=== PATIENT | male | born 1970 | race Caucasian/White ===

== ENCOUNTER 2016-08-07 23:58 | Observation (INO) | payer OTHER ==
[2016-08-08] MEDS ORDERED: Dexamethasone IV* 4 MG/ML 1 ML (4 MG) IV SLOW PU ONE (00:33)
[2016-08-08] MEDS ORDERED: Ketorolac INJ* 30 MG/ML 1 ML VIAL IV PUSH ONE (00:33)
[2016-08-08] MEDS ORDERED: Morphine INJ* 4 MG/ML 1 ML SYRINGE IV ONE (00:34)
--- NOTE | 2016-08-08 00:40 | ED ---
Back Pain - HPI Summary HPI Summary: The patient is a 46 male presenting to ED with complaint of worsening low back pain since yesterday morning. Reports chronic history of intermittent low back pain secondary to traumatic herniated disc s/p L4-L5 spinal surgery 1991. Has been evaluated by PCP with pending MRI. Admits to radiation of pain right posterior thigh to great toe. Denies recurrent trauma, heavy lifting, fever, chills, chest pain, shortness of breath, abdominal pain, fecal or urinary incontinence, urinary retention, unilateral weakness. Has been taking ibuprofen 800 mg with minimal relief. History of asthma and seasonal allergies. S/P left inguinal herniorrhaphy and septoplasty. PCP Dr. Sadaf Sanchez SH: Former smoker. Occasional marijuana use. No alcohol. - History of Current Complaint Pain Intensity: 7 <Yue Michel - Last Filed: 08/08/16 01:58> <Crispin Dash - Last Filed: 08/08/16 05:02> - History of Current Complaint Chief Complaint: EDBackInjuryPain Stated Complaint: BACK PAIN Time Seen by Provider: 08/08/16 00:09 - Allergies/Home Medications Allergies/Adverse Reactions: Allergies Allergy/AdvReac Type Severity Reaction Status Date / Time Penicillins Allergy Intermediate Hives Verified 08/08/16 01:55 PMH/Surg Hx/FS Hx/Imm Hx Endocrine/Hematology History: Denies: Hx Diabetes Cardiovascular History: Denies: Hx Hypertension, Hx Pacemaker/ICD History: Denies: Hx Renal Disease Sensory History: Denies: Hx Hearing Aid Psychiatric History: Denies: Hx Panic Disorder - Surgical History Surgery Procedure, Year, and Place: 1991-LAZER SURGERY L4-5. 1991-DISCECTOMY L4 -5. 1995-DEVIATED SEPTUM. 1989-[facility] Infectious Disease History: No Infectious Disease History: Denies: Traveled Outside the [place] in Last 30 Days - Social History Alcohol Use: None Substance Use Type: Reports: Marijuana Smoking Status (MU): Former Smoker <Yue Michel - Last Filed: 08/08/16 01:58> Review of Systems Constitutional: Negative Negative: Fever, Chills Cardiovascular: Negative Negative: Chest Pain Respiratory: Negative Negative: Shortness Of Breath, Cough Gastrointestinal: Negative Negative: Abdominal Pain, Vomiting, Nausea Genitourinary: Negative Negative: burning, dysuria, flank pain, hematuria Positive: Arthralgia, Myalgia, Decreased ROM Skin: Negative Negative: Rash Neurological: Negative Positive: Paresthesia. Negative: Weakness, Numbness Psychological: Normal All Other Systems Reviewed And Are Negative: Yes <Yue Michel - Last Filed: 08/08/16 01:58> Physical Exam Triage Information Reviewed: Yes Vital Signs On Initial Exam: Initial Vitals BP 116/62 08/08/16 00:07 Vital Signs Reviewed: Yes Appearance: Positive: Well-Appearing, Well-Nourished, Pain Distress - speaking calmly in mild pain distress in left lateral recumbent with knees bent inward Skin: Positive: Warm, Skin Color Reflects Adequate Perfusion, Dry Head/Face: Positive: Normal Head/Face Inspection Eyes: Positive: Normal - Anicteric Neck: Positive: Supple, Nontender Respiratory/Lung Sounds: Positive: Clear to Auscultation, Breath Sounds Present. Negative: Decreased Breath Sounds, Rales, Rhonchi, Wheezes, Unable to speak in full sentences Cardiovascular: Positive: Normal, RRR, S1, S2. Negative: Murmur, Rub, Leg Edema Left, Leg Edema Right Abdomen Description: Positive: Nontender, No Organomegaly, Soft. Negative: CVA Tenderness (R), CVA Tenderness (L), Distended, Guarding, Peritoneal Signs Bowel Sounds: Positive: Present Musculoskeletal: Positive: Strength/ROM Intact - 5/5 muscle strength UE/LE bilaterally; positive right SLR, Limited @ - decreased spinal ROM, Pain @ - mild tenderness midline L4-L5 region and right SI. Negative: Edema Left, Edema Right Neurological: Positive: Normal, Sensory/Motor Intact, Reflexes Intact - patellar and Achilles 2+ bilaterally, NV Bundle Intact Distally - no saddle dyskinesia, Babinski Bilateral - downward bilaterally, Facial Symmetry, Speech Normal, Other - no foot drop - Varna Coma Scale Coma Scale Total: 15 <Yue Michel - Last Filed: 08/08/16 01:58> Vital Signs On Initial Exam: Initial Vitals BP 116/62 08/08/16 00:07 <Crispin Dash - Last Filed: 08/08/16 05:02> Diagnostics - Vital Signs Vital Signs Temp Pulse Resp BP Pulse Ox 08/08/16 00:09 71 92 08/08/16 00:08 99.5 F 78 16 116/62 95 08/08/16 00:07 116/62 <Yue Michel - Last Filed: 08/08/16 01:58> - Vital Signs Vital Signs Temp Pulse Resp BP Pulse Ox 08/08/16 04:00 66 136/72 90 08/08/16 03:51 16 08/08/16 03:30 63 145/80 94 08/08/16 03:00 62 164/87 94 08/08/16 02:53 68 159/85 95 08/08/16 02:00 66 110/72 94 08/08/16 01:48 75/50 08/08/16 01:36 18 08/08/16 01:32 74 97 08/08/16 01:00 125/68 08/08/16 00:30 78 121/91 97 08/08/16 00:16 76 94 08/08/16 00:09 71 92 08/08/16 00:08 99.5 F 78 16 116/62 95 08/08/16 00:07 116/62 <Crispin Dash - Last Filed: 08/08/16 05:02> Re-Evaluation - Re-Evaluation First Eval Re-Evaluation Time: 04:48 Change: Unchanged Comment: Pt is still having pain, but feels that he is not well enough to return home. <Crispin Dash - Last Filed: 08/08/16 05:02> Back Pain Course/Dx - Course Assessment/Plan: Reviewed ISTOP without recent controlled substance. Impression of atraumatic acute exacerbation of chronic low back pain. Treated with toradol , morphine, decadron. Rx ibuprofen and hydrocodone. Anticipate discharge once analgesic permits to independent movement and ambulation. Will be signed out to attending, Dr. Dash awaiting ambulation trial. Advised to call Dr. Sanchez today to arrange follow-up. <Yue Michel - Last Filed: 08/08/16 01:58> - Diagnoses Differential Diagnosis/HQI/PQRI: Positive: Herniated Disc, Sprain <Crispin Dash - Last Filed: 08/08/16 05:02> - Diagnoses Provider Diagnoses: Back pain at L4-L5 level, Radiculopathy of leg Discharge - Discharge Plan Discharge Disposition Comment: Signed out to Dr. Dash. <Yue Michel - Last Filed: 08/08/16 01:58> <Crispin Dash - Last Filed: 08/08/16 05:02> - Discharge Plan Condition: Stable Disposition: ADMITTED TO [facility] Prescriptions: HYDROcodone/ACETAMIN 5-325 MG* [[place] 5-325 TAB*] 1 tab PO Q6H PRN #16 tab MDD 4 PRN Reason: Pain - Moderate To Severe Ibuprofen TAB* [Motrin TAB* 600 MG] 600 mg PO Q6H PRN #20 tab PRN Reason: Pain Patient Education Materials: Acute Low Back Pain (ED), Lumbar Radiculopathy (ED ) Referrals: Sadaf Sanchez MD [Medical Doctor] - As Soon As Possible
[2016-08-08] MEDS ORDERED: Diazepam TAB(*) 5 MG PO ONE ×2 (03:43→19:33)
[2016-08-08] MEDS ORDERED: HYDROmorphone* 1 MG/ML 1 ML SYR IV SLOW PU ONE (03:43)
--- NOTE | 2016-08-08 05:01 | ED ---
I, Elmer Martell, regisibed for Crispin Dash MD on 08/08/16 at 0346 . Progress - Progress Note Progress Note: Yonas Martinez is a 46 yo male presenting to [facility] with back pain radiating down his legs bilaterally. He was a sign out from [place]. Pt was evaluated at 0335, and was found to be in more pain. He was able to perform a straight leg raise at 45 degrees, with no motor weakness noted. Re-Evaluation - Re-Evaluation First Eval Re-Evaluation Time: 04:48 Change: Unchanged Comment: Pt is still having pain, but feels that he is not well enough to return home. Course/Dx - Course Course Of Treatment: Yonas Martinez is a 46 yo male presenting to [facility] with back pain radiating down his legs bilaterally. He was a sign out from [place]. Originally, her plan was to discharge the Pt after re-evaluation if his pain was controlled for follow up with his family doctor regarding an MRI. After clinical examination, Pt is still in a lot of pain. Pt will receive another course of pain management medication to control his pain. After review of his lab work and discussion with Dr. Sow, he will be admitted to [facility] for further evaluation and treatment. - Diagnoses Provider Diagnoses: Back pain at L4-L5 level, Radiculopathy of leg - Provider Notifications Discussed Care Of Patient With: 0452 - Dr. Sow (hospitalist) - discussed Pt condition, agrees to evaluate Pt for admission. Instructed by Provider To: Admit As Inpatient The documentation as recorded by the regisibe, Elmer Martell accurately reflects the service I personally performed and the decisions made by me, Crispin Dash MD.
[2016-08-08] MEDS ORDERED: Acetaminophen TAB* 325 MG PO PRN (05:03)
[2016-08-08] MEDS ORDERED: Albuterol 2.5 MG/3 ML NEB.SOL* (0.083%) INH PRN (05:03)
[2016-08-08] MEDS ORDERED: Melatonin (NF) 3 MG TAB PO PRN (05:03)
[2016-08-08] MEDS ORDERED: Ondansetron INJ* 2 MG/ML VIAL IV PRN (05:05)
[2016-08-08] MEDS ORDERED: oxyCODONE TAB* 5 MG TAB PO PRN (05:05)
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
[2016-08-08] MEDS: NS 0.9% 1000 ML* 1,000 ML IV SCH ×3 (05:56→23:29)
[2016-08-08] MEDS ORDERED: Omeprazole CAP* 20 MG PO SCH (06:00)
[2016-08-08] MEDS ORDERED: Lidocaine PATCH 5%* 1 PATCH TRANSDERM SCH ×2 (07:00→09:40)
--- NOTE | 2016-08-08 08:04 | RAD ---
Indication: Back pain. 3 views of the lumbar spine demonstrates disc space narrowing at L4-L5 with endplate sclerosis. Osteophyte formation is noted. Pedicles appear intact. IMPRESSION: DEGENERATIVE DISC DISEASE AT L4-L5.
[2016-08-08 08:25] LABS: Hematocrit 47 % (42-52); Hemoglobin 15.5 g/dl (14.0-18.0); Mean Corpuscular HGB Conc 33 g/dl (31-36); Mean Corpuscular Hemoglobin 29 pg (27-31); Mean Corpuscular Volume 88 fL (80-94); Mean Platelet Volume 10 um3 (7.4-10.4); Red Blood Count 5.29 10^6/ul (4.0-5.4); Red Cell Distribution Width 14 % (10.5-15); White Blood Count 6.5 10^3/ul (3.5-10.8)
[2016-08-08 08:40] LABS: BUN/Creatinine Ratio 14.2 (8-20); C Reactive Protein 18.63 mg/L (< 5.00); Calcium 9.4 mg/dL (8.6-10.3); EGFR African American 77.8 (>60); EGFR Non-African American 60.5 (>60); Potassium 4.5 mmol/L (3.5-5.0)
[2016-08-08 09:20] LABS: Erythrocyte Sed Rate 8 mm/Hr (0-14)
[2016-08-08] MEDS: Cyclobenzaprine TAB* 10 MG PO PRN ×2 (10:42→23:59)
[2016-08-08] MEDS: Docusate CAP* 100 MG PO SCH ×2 (10:43→20:07)
--- NOTE | 2016-08-08 18:05 | PN ---
Subjective Date of Service: 08/08/16 Interval History: Patient seen and examined at bedside. Pt states that his back pain is improving slowly. Denies fever, chills, shortness of breath, chest discomfort, numbness or tingling, loss of bowel or bladder, N/V/D. Family History: Unchanged from Admission Social History: Unchanged from Admission Past Medical History: Unchanged from Admission Objective Active Medications: Acetaminophen (Tylenol Tab*) 650 mg PO Q6H PRN Reason: FEVER/PAIN Albuterol (Ventolin 2.5 Mg/3 Ml Neb.[place]*) 2.5 mg INH Q2H PRN Reason: SOB/ WHEEZING Cyclobenzaprine HCl (Flexeril Tab*) 10 mg PO TID PRN Reason: back pain Docusate Sodium (Colace Cap*) 200 mg PO BID [facility] Hydromorphone HCl (Dilaudid Iv*) 1 mg IV Q4H PRN Reason: PAIN Sodium Chloride (Ns 0.9% 1000 Ml*) 1,000 mls @ 125 mls/hr IV PER RATE [facility] Lidocaine (Lidoderm 5% Patch*) 1 patch TRANSDERM .ON 0900 OFF AT 2100 [facility] Melatonin (Melatonin (Nf)) 3 mg PO BEDTIME PRN; Protocol Reason: Sleep Ondansetron HCl (Zofran Inj*) 4 mg IV Q6H PRN Reason: NAUSEA Oxycodone HCl (Roxycodone Tab*) 10 mg PO Q4H PRN Reason: PAIN Pharmacy Profile Note (Lidocaine Patch Remove*) 1 note N/A 2100 [facility] Vital Signs 08/08/16 08/08/16 08/08/16 05:00 05:20 05:56 Temperature 99.5 F 98.4 F Pulse Rate 61 66 65 Respiratory 16 16 Rate Blood Pressure 137/74 136/77 121/68 (mmHg) O2 Sat by Pulse 93 94 Oximetry 08/08/16 08/08/16 08/08/16 10:42 11:59 12:42 Temperature 97.9 F Pulse Rate 59 Respiratory 16 18 16 Rate Blood Pressure 103/61 (mmHg) O2 Sat by Pulse 96 Oximetry 08/08/16 16:54 Temperature 98.7 F Pulse Rate 58 Respiratory 16 Rate Blood Pressure 94/48 (mmHg) O2 Sat by Pulse 95 Oximetry Oxygen Devices in Use Now: None Appearance: NAD, sitting up in bed Eyes: No Scleral Icterus, PERRLA Ears/Nose/Mouth/Throat: NL Teeth, Lips, Gums, Mucous Membranes Moist Neck: NL Appearance and Movements; NL JVP, Trachea Midline Respiratory: Symmetrical Chest Expansion and Respiratory Effort, Clear to Auscultation Cardiovascular: NL Sounds; No Murmurs; No JVD, RRR Extremities: No Edema Skin: No Rash or Ulcers Neurological: Alert and Oriented x 3, NL Muscle Strength and Tone Lines/Tubes/Other Access: Clean, Dry and Intact Peripheral IV - site benign Nutrition: Taking PO's Result Diagrams: 08/08/16 07:48 08/08/16 07:48 Assess/Plan/Problems-Billing Assessment: Mr. Martinez is a 46 yo male with PMH significant for chronic low back pain who presented to the emergency room with a non-traumatic exacerbation of his back pain. - Patient Problems (1) Intractable low back pain Code(s): M54.5 - LOW BACK PAIN SNOMED Code(s): 92379903912252601 Comment: - Continue PT - Continue pain control - Supportive care (2) MITRA (acute kidney injury) Code(s): N17.9 - ACUTE KIDNEY FAILURE, UNSPECIFIED SNOMED Code(s): 46038051 Comment: - Elevated creatinine, unknown baseline - Will recheck in the AM after IVFs - Will avoid nephrotoxic medications (3) DVT prophylaxis Code(s): HAL2278 - SNOMED Code(s): 858062046 Comment: - TEDs (4) Full code status Code(s): Z78.9 - OTHER SPECIFIED HEALTH STATUS SNOMED Code(s): 081481827 Status and Disposition: OBV. Discharge to home when medically stable, possibly in the AM
[2016-08-08] MEDS: HYDROmorphone* 1 MG/ML 1 ML SYR IV PRN (20:02)
[2016-08-08] MEDS ORDERED: Lidocaine Patch REMOVE* 1 NOTE MISC SCH (21:00)
[2016-08-09] MEDS: oxyCODONE TAB* 5 MG TAB PO PRN ×3 (04:22→16:29)
[2016-08-09 07:36] LABS: BUN/Creatinine Ratio 15.1 (8-20); Calcium 8.6 mg/dL (8.6-10.3); EGFR African American 83.9 (>60); EGFR Non-African American 65.2 (>60); Potassium 4.2 mmol/L (3.5-5.0)
[2016-08-09] MEDS: NS 0.9% 1000 ML* 1,000 ML IV SCH (07:43)
[2016-08-09] MEDS: Docusate CAP* 100 MG PO SCH (07:55)
[2016-08-09] MEDS: HYDROmorphone* 1 MG/ML 1 ML SYR IV PRN (07:55)
[2016-08-09] MEDS: Cyclobenzaprine TAB* 10 MG PO PRN ×2 (09:51→16:30)
--- NOTE | 2016-08-09 11:08 | PN ---
Subjective Date of Service: 08/09/16 Interval History: Patient seen and examined at bedside. Pt states that he had a lot of pain overnight after walking in the halls. He feels like "his back is slipping out while he is sleeping". Denies fever, pain, chest discomfort, shortness of breath , numbness or tingling, loss of bowel or bladder, N/V/D. Pt would like to try and go home later today, but has not been out of bed today. Family History: Unchanged from Admission Social History: Unchanged from Admission Past Medical History: Unchanged from Admission Objective Active Medications: Acetaminophen (Tylenol Tab*) 650 mg PO Q6H PRN Reason: FEVER/PAIN Albuterol (Ventolin 2.5 Mg/3 Ml Neb.[place]*) 2.5 mg INH Q2H PRN Reason: SOB/ WHEEZING Cyclobenzaprine HCl (Flexeril Tab*) 10 mg PO TID PRN Reason: back pain Docusate Sodium (Colace Cap*) 200 mg PO BID [facility] Hydromorphone HCl (Dilaudid Iv*) 1 mg IV Q4H PRN Reason: PAIN Sodium Chloride (Ns 0.9% 1000 Ml*) 1,000 mls @ 125 mls/hr IV PER RATE [facility] Lidocaine (Lidoderm 5% Patch*) 1 patch TRANSDERM .ON 0900 OFF AT 2100 [facility] Melatonin (Melatonin (Nf)) 3 mg PO BEDTIME PRN; Protocol Reason: Sleep Ondansetron HCl (Zofran Inj*) 4 mg IV Q6H PRN Reason: NAUSEA Oxycodone HCl (Roxycodone Tab*) 5 mg PO Q4H PRN Reason: PAIN Pharmacy Profile Note (Lidocaine Patch Remove*) 1 note N/A 2100 [facility] Vital Signs 08/08/16 08/08/16 08/08/16 11:59 12:42 16:54 Temperature 97.9 F 98.7 F Pulse Rate 59 58 Respiratory 18 16 16 Rate Blood Pressure 103/61 94/48 (mmHg) O2 Sat by Pulse 96 95 Oximetry 08/08/16 08/08/16 08/08/16 20:00 20:02 20:15 Temperature Pulse Rate 67 Respiratory 16 18 18 Rate Blood Pressure (mmHg) O2 Sat by Pulse 98 Oximetry 08/08/16 08/08/16 08/08/16 20:53 21:02 21:27 Temperature 98.2 F Pulse Rate 76 Respiratory 18 18 18 Rate Blood Pressure 129/75 (mmHg) O2 Sat by Pulse 95 Oximetry 08/08/16 08/08/16 08/08/16 23:27 23:52 23:59 Temperature 97.5 F Pulse Rate 62 Respiratory 16 16 16 Rate Blood Pressure 113/56 (mmHg) O2 Sat by Pulse 95 Oximetry 08/09/16 08/09/16 08/09/16 01:59 04:04 04:22 Temperature 98.1 F Pulse Rate 58 Respiratory 16 15 18 Rate Blood Pressure 111/56 (mmHg) O2 Sat by Pulse 97 Oximetry 08/09/16 08/09/16 08/09/16 06:22 07:25 07:55 Temperature 97.8 F Pulse Rate 53 Respiratory 16 16 16 Rate Blood Pressure 96/41 (mmHg) O2 Sat by Pulse 97 Oximetry Oxygen Devices in Use Now: None Appearance: NAD, laying in bed. Eyes: No Scleral Icterus, PERRLA Ears/Nose/Mouth/Throat: NL Teeth, Lips, Gums, Mucous Membranes Moist Neck: NL Appearance and Movements; NL JVP, Trachea Midline Respiratory: Symmetrical Chest Expansion and Respiratory Effort, Clear to Auscultation Cardiovascular: NL Sounds; No Murmurs; No JVD, RRR Abdominal: NL Sounds; No Tenderness; No Distention Extremities: No Edema Skin: No Rash or Ulcers Neurological: Alert and Oriented x 3, NL Muscle Strength and Tone, - - No midline back tenderness Lines/Tubes/Other Access: Clean, Dry and Intact Peripheral IV - site benign Nutrition: Taking PO's Result Diagrams: 08/08/16 07:48 08/09/16 06:50 Assess/Plan/Problems-Billing Assessment: Mr. Martinez is a 46 yo male with PMH significant for chronic low back pain who presented to the emergency room with a non-traumatic exacerbation of his back pain. - Patient Problems (1) Intractable low back pain Code(s): M54.5 - LOW BACK PAIN SNOMED Code(s): 07635489198961031 Comment: - Continue PT - Continue pain control - Will start steroids - Supportive care (2) MITRA (acute kidney injury) Code(s): N17.9 - ACUTE KIDNEY FAILURE, UNSPECIFIED SNOMED Code(s): 50386778 Comment: - Creatinine improving with IVFs - Suspect this is secondary to NSAID use and dehydration - Will avoid nephrotoxic medications (3) DVT prophylaxis Code(s): JBO7819 - SNOMED Code(s): 273633285 Comment: - Avinash (4) Full code status Code(s): Z78.9 - OTHER SPECIFIED HEALTH STATUS SNOMED Code(s): 959806374 Status and Disposition: OBV. Discharge to home when medically stable, possibly later today.
[2016-08-09] MEDS ORDERED: methylPREDNISolone TAB* 4 MG PO SCH (14:00)
[2016-08-09 15:30] VITALS: BP 125/69
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
== END 2016-08-09 17:15 | disposition home or self-care (01) ==
LOC: ED 23:58 → SSU 08-08 04:53
PROVIDERS: ADMIT Hospitalist; ATTEND Internal Medicine
DX: M54.5 Low back pain (principal); N17.9 Acute kidney failure, unspecified; M51.36 Other intervertebral disc degeneration, lumbar region; Z87.891 Personal history of nicotine dependence; E66.9 Obesity, unspecified; G89.29 Other chronic pain; M54.16 Radiculopathy, lumbar region; Z88.0 Allergy status to penicillin
CPT/HCPCS: 36415; 72100; 80048; 85025; 85652; 86140; 96361; 96374; 96375; 96376; 99284; A9270-GY; G8978-GP-CJ; G8978-GP-CK; G8979-GP-CH; J1100; J1170; J1885; J2270; J7509

== ENCOUNTER 2018-05-13 11:05 | Emergency (ER) | payer OTHER ==
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
[2018-05-13 14:02] VITALS: BP 138/55
== END 2018-05-13 14:01 | disposition home or self-care (01) ==
LOC: ED 11:05
DX: S29.012A Strain of muscle and tendon of back wall of thorax, initial encounter (principal); S16.1XXA Strain of muscle, fascia and tendon at neck level, initial encounter; V49.49XA Driver injured in collision with other motor vehicles in traffic accident, initial encounter; Y92.415 Exit ramp or entrance ramp of street or highway as the place of occurrence of the external cause; M54.12 Radiculopathy, cervical region; Z88.0 Allergy status to penicillin; Z79.82 Long term (current) use of aspirin; Z87.891 Personal history of nicotine dependence
CPT/HCPCS: 72125; 72128; 99282